=== PATIENT | female | born 1965 | race Caucasian/White ===

== ENCOUNTER → 2024-07-26 09:48 | Outpatient (REF) | payer OTHER, SELFPAY | LOC: HWRAD 09:48 | PROVIDERS: ATTENDING PHYSICIAN Family Medicine | DX: G89.29 Other chronic pain (principal); M25.512 Pain in left shoulder; M75.82 Other shoulder lesions, left shoulder | CPT/HCPCS: 73030 ==

== ENCOUNTER → 2024-08-21 11:11 | Outpatient (REF) | payer OTHER, SELFPAY | LOC: HWRAD 11:11 | PROVIDERS: ATTENDING PHYSICIAN Family Medicine | DX: R33.9 Retention of urine, unspecified (principal) | CPT/HCPCS: 76770 ==